=== PATIENT | female | born 1985 | race African-American/Black ===

== ENCOUNTER 2016-10-08 10:44 | Emergency (ER) | payer MEDICAID ==
--- NOTE | 2016-10-08 11:13 | ER Document Report ---
ED Medical Screen (RME) - General Stated Complaint: KNEE PAIN Notes: 30 yo female c/o pain behind her right knee x 1 1/2 weeks. feels like knee wants to give out. started hurting after going to gym. burning sensation. pt is morbidly obese TRAVEL OUTSIDE OF THE [place] IN LAST 30 DAYS: No - Related Data Allergies/Adverse Reactions: No Known Allergies Allergy (Verified 02/19/16 13:19) Past Medical History - Past Medical History Cardiac Medical History: Denies: Hx Coronary Artery Disease, Hx Heart Attack, Hx Hypertension Pulmonary Medical History: Reports: Hx Bronchitis Denies: Hx Asthma, Hx COPD, Hx Pneumonia Neurological Medical History: Denies: Hx Cerebrovascular Accident, Hx Migraine, Hx Seizures Endocrine Medical History: Denies: Hx Diabetes Mellitus Type 1, Hx Diabetes Mellitus Type 2 Musculoskeltal Medical History: Denies Hx Arthritis Past Surgical History: Reports: Hx Section - x2, Hx Oral Surgery - Immunizations Immunizations up to date: Yes Hx Diphtheria, Pertussis, Tetanus Vaccination: Yes Physical Exam - Vital signs Vitals: Temp Pulse Resp BP Pulse Ox 98.1 F 68 18 117/99 H 100 10/08/16 10:48 10/08/16 10:48 10/08/16 10:48 10/08/16 10:48 10/08/16 10:48 Course - Vital Signs Vital signs: Temp Pulse Resp BP Pulse Ox 98.1 F 68 18 117/99 H 100 10/08/16 10:48 10/08/16 10:48 10/08/16 10:48 10/08/16 10:48 10/08/16 10:48
--- NOTE | 2016-10-08 12:25 | ER Document Report ---
[id number] of Arrival: Ambulatory Information source: Patient Notes: 30-year-old female presents with complaints of right knee pain. Patient notes it feels like it's getting out intermittently. Patient notes that she recently went to the gym and has been working out using leg lifts and feels that it hurts now. Patient denies any calf swelling or pain denies any DVT or PE risk factors otherwise TRAVEL OUTSIDE OF THE [place] IN LAST 30 DAYS: No - HPI Onset: Last week Onset/Duration: Persistent Quality of pain: Achy Severity: Mild Pain Level: 1 Associated symptoms: Other Exacerbated by: Movement Relieved by: Denies Similar symptoms previously: No Recently seen / treated by doctor: No - Related Data Allergies/Adverse Reactions: No Known Allergies Allergy (Verified 10/08/16 11:12) Past Medical History - Social History Smoking Status: Never Smoker Cigarette use (# per day): No Chew tobacco use (# tins/day): No Smoking Education Provided: No Frequency of alcohol use: None Drug Abuse: None Family History: Reviewed & Not Pertinent Patient has suicidal ideation: No Patient has homicidal ideation: No - Past Medical History Cardiac Medical History: Denies: Hx Coronary Artery Disease, Hx Heart Attack, Hx Hypertension Pulmonary Medical History: Reports: Hx Bronchitis Denies: Hx Asthma, Hx COPD, Hx Pneumonia Neurological Medical History: Denies: Hx Cerebrovascular Accident, Hx Migraine, Hx Seizures Endocrine Medical History: Denies: Hx Diabetes Mellitus Type 1, Hx Diabetes Mellitus Type 2 Renal/ Medical History: Denies: Hx Peritoneal Dialysis Musculoskeltal Medical History: Denies Hx Arthritis Past Surgical History: Reports: Hx Section - x2, Hx Oral Surgery - Immunizations Immunizations up to date: Yes Hx Diphtheria, Pertussis, Tetanus Vaccination: Yes Review of Systems - Review of Systems Notes: REVIEW OF SYSTEMS: CONSTITUTIONAL : Denies fever, chills, or sweats. Denies recent illness. EENT: Denies eye, ear, throat, or mouth pain or symptoms. Denies nasal or sinus congestion or discharge. Denies throat, tongue, or mouth swelling or difficulty swallowing. CARDIOVASCULAR: Denies chest pain. Denies palpitations or racing or irregular heart beat. Denies ankle edema. RESPIRATORY: Denies cough, cold, or chest congestion. Denies shortness of breath, difficulty breathing, or wheezing. GASTROINTESTINAL: Denies abdominal pain or distention. Denies nausea, vomiting , or diarrhea. Denies blood in vomitus, stools, or per rectum. Denies black, tarry stools. Denies constipation. GENITOURINARY: Denies difficulty urinating, painful urination, burning, frequency, blood in urine, or discharge. FEMALE GENITOURINARY: Denies vaginal bleeding, heavy or abnormal periods, irregular periods. Denies vaginal discharge or odor. MUSCULOSKELETAL: Right knee pain SKIN: Denies rash, lesions or sores. HEMATOLOGIC : Denies easy bruising or bleeding. LYMPHATIC: Denies swollen, enlarged glands. NEUROLOGICAL: Denies confusion or altered mental status. Denies passing out or loss of consciousness. Denies dizziness or lightheadedness. Denies headache. Denies weakness or paralysis or loss of use of either side. Denies problems with gait or speech. Denies sensory loss, numbness, or tingling. Denies seizures. PSYCHIATRIC: Denies anxiety or stress. Denies depression, suicidal ideation, or homicidal ideation. ALL OTHER SYSTEMS REVIEWED AND NEGATIVE. Dictation was performed using [employer] voice recognition software PHYSICAL EXAMINATION: GENERAL: Well-appearing, well-nourished and in no acute distress. HEAD: Atraumatic, normocephalic. EYES: Pupils equal round and reactive to light, extraocular movements intact, conjunctiva are normal. ENT: Nares patent, oropharynx clear without exudates. Moist mucous membranes. NECK: Normal range of motion, supple without lymphadenopathy LUNGS: Breath sounds clear to auscultation bilaterally and equal. No wheezes rales or rhonchi. HEART: Regular rate and rhythm without murmurs ABDOMEN: Soft, nontender, nondistended abdomen. No guarding, no rebound. No masses appreciated. Female : deferred Musculoskeletal: Mild effusion of the right knee NEUROLOGICAL: Cranial nerves grossly intact. Normal speech, normal gait. Normal sensory, motor exams PSYCH: Normal mood, normal affect. SKIN: Warm, Dry, normal turgor, no rashes or lesions noted. Physical Exam - Vital signs Vitals: Temp Pulse Resp BP Pulse Ox 98.1 F 68 18 117/99 H 100 10/08/16 10:48 10/08/16 10:48 10/08/16 10:48 10/08/16 10:48 10/08/16 10:48 Course - Re-evaluation Re-evalutation: 10/08/16 16:26 Physical examination notes no signs of DVT, patient is in no significant distress. Patient is able to ambulate with no difficulty. I will discharge home with Shekhar wrap and follow-up with orthopedics for reevaluation as well as anti-inflammatories and pain control After performing a Medical Screening Examination, I estimate there is LOW risk for ACUTE CORONARY SYNDROME, RESPIRATORY FAILURE, SEPSIS OR MENINGITIS, thus I consider the discharge disposition reasonable. The patient and I have discussed the diagnosis and risks, and we agree with discharging home with close follow- up. We also discussed returning to the Emergency Department immediately if new or worsening symptoms occur. We have discussed the symptoms which are most concerning (e.g., changing or worsening pain, trouble swallowing or breathing, neck stiffness, fever) that necessitate immediate return. - Vital Signs Vital signs: Temp Pulse Resp BP Pulse Ox 98.3 F 53 L 20 110/68 100 10/08/16 12:49 10/08/16 12:49 10/08/16 12:49 10/08/16 12:49 10/08/16 12:49 Discharge - Discharge Clinical Impression: Right knee pain Qualifiers: Chronicity: acute Qualified Code(s): M25.561 - Pain in right knee Condition: Stable Disposition: HOME, SELF-CARE Instructions: Suspected Internal Knee Injury ([facility]), Sprained Knee ([facility]) Prescriptions: Hydrocodone/Acetaminophen [Tryon 5-325 mg Tablet] 1 tab PO Q6 #20 tablet Referrals: VARINDER BLANTON MD [ACTIVE STAFF] - Follow up tomorrow
[2016-10-08 12:54] VITALS: BP 110/68
== END 2016-10-08 12:56 | disposition home or self-care (01) ==
LOC: ER 10:44
DX: M25.561 Pain in right knee (principal)
CPT/HCPCS: 99283

== ENCOUNTER 2016-10-15 17:12 | Emergency (ER) | payer MEDICAID ==
--- NOTE | 2016-10-15 18:44 | ER Document Report ---
ED Medical Screen (RME) - General Stated Complaint: FACIAL SWELLING Notes: 30 yo female c/o left eye redness, tearing and drainage x 1 day. + exposure to pink eye TRAVEL OUTSIDE OF THE [place] IN LAST 30 DAYS: No - Related Data Allergies/Adverse Reactions: No Known Allergies Allergy (Verified 10/08/16 11:12) Past Medical History - Past Medical History Cardiac Medical History: Denies: Hx Coronary Artery Disease, Hx Heart Attack, Hx Hypertension Pulmonary Medical History: Reports: Hx Bronchitis Denies: Hx Asthma, Hx COPD, Hx Pneumonia Neurological Medical History: Denies: Hx Cerebrovascular Accident, Hx Migraine, Hx Seizures Endocrine Medical History: Denies: Hx Diabetes Mellitus Type 1, Hx Diabetes Mellitus Type 2 Renal/ Medical History: Denies: Hx Peritoneal Dialysis Musculoskeltal Medical History: Denies Hx Arthritis Past Surgical History: Reports: Hx Section - x2, Hx Oral Surgery - Immunizations Immunizations up to date: Yes Hx Diphtheria, Pertussis, Tetanus Vaccination: Yes Physical Exam - Vital signs Vitals: Temp Pulse Resp BP Pulse Ox 97.9 F 88 18 141/89 H 97 10/15/16 17:36 10/15/16 17:36 10/15/16 17:36 10/15/16 17:36 10/15/16 17:36 Course - Vital Signs Vital signs: Temp Pulse Resp BP Pulse Ox 97.9 F 88 18 141/89 H 97 10/15/16 17:36 10/15/16 17:36 10/15/16 17:36 10/15/16 17:36 10/15/16 17:36
--- NOTE | 2016-10-15 20:30 | ER Document Report ---
ED General - General Chief Complaint: Redness of Eye Stated Complaint: FACIAL SWELLING Notes: Patient is a 30-year-old female without significant past medical history presents with left eye irritation. Describes the discomfort as a mild, burning pain. Nothing worsens the symptoms and she notes that they have spontaneously improved since onset. States it started after she was outside doing yardwork with a friend. No history of similar symptoms in the past. Denies any foreign body to the eye or feeling that she has something in her eye. He does not use contacts. TRAVEL OUTSIDE OF THE [place] IN LAST 30 DAYS: No - Related Data Allergies/Adverse Reactions: No Known Allergies Allergy (Verified 10/15/16 18:42) Past Medical History - General Information source: Patient - Social History Smoking Status: Never Smoker Chew tobacco use (# tins/day): No Frequency of alcohol use: None Drug Abuse: None Lives with: Family Family History: Reviewed & Not Pertinent Patient has suicidal ideation: No Patient has homicidal ideation: No - Past Medical History Cardiac Medical History: Denies: Hx Coronary Artery Disease, Hx Heart Attack, Hx Hypertension Pulmonary Medical History: Reports: Hx Bronchitis Denies: Hx Asthma, Hx COPD, Hx Pneumonia Neurological Medical History: Denies: Hx Cerebrovascular Accident, Hx Migraine, Hx Seizures Endocrine Medical History: Denies: Hx Diabetes Mellitus Type 1, Hx Diabetes Mellitus Type 2 Renal/ Medical History: Denies: Hx Peritoneal Dialysis Musculoskeltal Medical History: Denies Hx Arthritis Past Surgical History: Reports: Hx Section - x2, Hx Oral Surgery - Immunizations Immunizations up to date: Yes Hx Diphtheria, Pertussis, Tetanus Vaccination: Yes Review of Systems - Review of Systems Notes: Constitutional: Negative for fever. HENT: Negative for sore throat. Eyes: Positive for visual changes. Cardiovascular: Negative for chest pain. Respiratory: Negative for shortness of breath. Gastrointestinal: Negative for abdominal pain, vomiting or diarrhea. Genitourinary: Negative for dysuria. Musculoskeletal: Negative for back pain. Skin: Negative for rash. Neurological: Negative for headaches, weakness or numbness. 10 point ROS negative except as marked above and in HPI. Physical Exam - Vital signs Vitals: Temp Pulse Resp BP Pulse Ox 97.9 F 88 18 141/89 H 97 10/15/16 17:36 10/15/16 17:36 10/15/16 17:36 10/15/16 17:36 10/15/16 17:36 Interpretation: Normal Notes: PHYSICAL EXAMINATION: GENERAL: Well-appearing, well-nourished and in no acute distress. HEAD: Atraumatic, normocephalic. EYES: Mild conjunctival injection on the left. No foreign body. A tracker motions intact. Pupils 3 mm equal reactive. ENT: Moist mucous membranes. NECK: Normal range of motion LUNGS: Normal work of breathing HEART: 2+ radial pulses bilaterally EXTREMITIES: no pitting or edema. No cyanosis. NEUROLOGICAL: No focal neurological deficits. Moves all extremities spontaneously and on command. PSYCH: Normal mood, normal affect. SKIN: Warm, Dry, normal turgor, no rashes or lesions noted. Course - Re-evaluation Re-evalutation: 10/15/16 20:28 Patient presents with left conjunctival injection after helping to the plant soil. States that the eye became mildly your tinge began rubbing it and the overall appearance is consistent with a local contact irritation. No foreign body. Extract motions intact. Pupils equal and reactive. She denies any symptoms to suggest an acute corneal abrasion she specifically denies any pain. I have instructed her to purchase [id number] antihistamine eyedrops. I do not suspect a periorbital or orbital cellulitis based on exam and history.At this time will discharge with return precautions and follow-up recommendations. Verbal discharge instructions given a the bedside and opportunity for questions given. Medication warnings reviewed. Patient is in agreement with this plan and has verbalized understanding of return precautions and the need for primary care follow-up in the next 24-72 hours. - Vital Signs Vital signs: Temp Pulse Resp BP Pulse Ox 98.6 F 81 18 136/92 H 97 10/15/16 20:51 10/15/16 20:51 10/15/16 20:51 10/15/16 20:51 10/15/16 20:51 Discharge - Discharge Clinical Impression: Conjunctivitis, left eye Qualifiers: Conjunctivitis type: acute Acute conjunctivitis type: atopic Qualified Code(s) : H10.12 - Acute atopic conjunctivitis, left eye Condition: Good Disposition: HOME, SELF-CARE Instructions: Eyedrop Use ([facility]), Conjunctivitis, Allergic Forms: Return to Work Referrals: STEFANIE CALDWELL MD [Primary Care Provider] - Follow up as needed
[2016-10-16 01:15] VITALS: BP 136/92
== END 2016-10-15 21:10 | disposition home or self-care (01) ==
LOC: ER 17:12
DX: H10.12 Acute atopic conjunctivitis, left eye (principal); R22.0 Localized swelling, mass and lump, head
CPT/HCPCS: 99283

== ENCOUNTER 2016-12-26 18:28 | Emergency (ER) | payer OTHER, MEDICAID ==
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
[2016-12-26 20:43] LABS: ABSOLUTE BASOPHILS # (AUTO) 0.1 10^3/uL (0.0-0.2); ABSOLUTE EOSINOPHILS # (AUTO) 0.2 10^3/uL (0.0-0.6); ABSOLUTE LYMPHOCYTES (AUTO) 3.9 10^3/uL (0.5-4.7); ABSOLUTE MONOCYTES (AUTO) 0.5 10^3/uL (0.1-1.4); ABSOLUTE NEUT (AUTO) 9.2 10^3/uL (1.7-8.2); BASOPHILS % (AUTO) 0.7 % (0-2); EOSINOPHILS % (AUTO) 1.4 % (0-6); HEMATOCRIT 41.9 % (36.0-47.0); HGB HCT DIFFERENCE 0.1; LYMPHOCYTES % (AUTO) 28.3 % (13-45); MEAN CORPUSCULAR HEMOGLOBIN 29.5 pg (27.0-33.4); MEAN CORPUSCULAR HGB CONC 33.5 g/dL (32.0-36.0); MEAN CORPUSCULAR VOLUME 88 fl (80-97); MONOCYTES % (AUTO) 3.5 % (3-13); RED BLOOD COUNT 4.76 10^6/uL (3.72-5.28); RED CELL DISTRIBUTION WIDTH 13.4 % (11.5-14.0); SEGMENTED NEUTROPHILS % (AUTO) 66.1 % (42-78); WHITE BLOOD COUNT 13.9 10^3/uL (4.0-10.5)
[2016-12-26 21:05] LABS: ALANINE AMINOTRANSFERASE 19 U/L (9-52); ALBUMIN 3.6 g/dL (3.5-5.0); ALKALINE PHOSPHATASE 94 U/L (38-126); ANION GAP 9 (5-19); ASPARTATE AMINO TRANSFERASE 15 U/L (14-36); BILIRUBIN,DIRECT 0.3 mg/dL (0.0-0.4); BILIRUBIN,TOTAL 0.4 mg/dL (0.2-1.3); BLOOD UREA NITROGEN 12 mg/dL (7-20); CALCIUM 9.2 mg/dL (8.4-10.2); CARBON DIOXIDE 28 mmol/L (22-30); CHLORIDE 103 mmol/L (98-107); CREATININE RESULT 0.74 mg/dL (0.52-1.25); GLUCOSE 132 mg/dL (75-110); POTASSIUM 4.6 mmol/L (3.6-5.0); SODIUM 139.8 mmol/L (137-145); TOTAL PROTEIN 6.7 g/dL (6.3-8.2)
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
[2016-12-27 00:23] VITALS: BP 122/64
== END 2016-12-26 22:25 | disposition home or self-care (01) ==
LOC: ER 18:28
DX: S39.012A Strain of muscle, fascia and tendon of lower back, initial encounter (principal); S16.1XXA Strain of muscle, fascia and tendon at neck level, initial encounter; E66.01 Morbid (severe) obesity due to excess calories; V79.40XA Driver of bus injured in collision with unspecified motor vehicles in traffic accident, initial encounter; Y92.410 Unspecified street and highway as the place of occurrence of the external cause; Y99.0 Civilian activity done for income or pay
CPT/HCPCS: 36415; 72125; 74177; 80053; 84703; 85025; 99284

== ENCOUNTER 2016-12-29 18:20 | Emergency (ER) | payer OTHER, MEDICAID ==
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
[2016-12-29 20:10] VITALS: BP 138/98
== END 2016-12-29 20:05 | disposition home or self-care (01) ==
LOC: ER 18:20
DX: M62.830 Muscle spasm of back (principal); V49.9XXA Car occupant (driver) (passenger) injured in unspecified traffic accident, initial encounter
CPT/HCPCS: 99282

== ENCOUNTER 2017-01-17 21:37 | Emergency (ER) | payer MEDICAID, OTHER ==
--- NOTE | 2017-01-17 23:40 | ER Document Report ---
ED GI/ - General Chief Complaint: Diarrhea Stated Complaint: DIARRHEA,ABDOMINAL PAIN Time Seen by Provider: 01/17/17 23:30 Notes: Patient is a 31-year-old female who comes emergency department for chief complaint of lower abdominal pain and diarrhea for the past 6 days, she states initially she had greenish-looking stools, she states these have started to become mucousy in appearance. Patient states she had 7 episodes today before coming to the emergency department. She denies fever, she denies nausea or vomiting, she denies flank pain, she denies blood in the stool. She denies recent antibiotics, suspicious foods, she denies that family members also have the same symptom. She tried Imodium at home without success. Patient denies history of the same. Past medical history of , denies any other medical history. TRAVEL OUTSIDE OF THE [place] IN LAST 30 DAYS: No - Related Data Allergies/Adverse Reactions: No Known Allergies Allergy (Verified 12/29/16 18:22) Past Medical History - General Information source: Patient - Social History Smoking Status: Never Smoker Drug Abuse: None Lives with: Family Family History: Reviewed & Not Pertinent - Past Medical History Cardiac Medical History: Denies: Hx Coronary Artery Disease, Hx Heart Attack, Hx Hypertension Pulmonary Medical History: Reports: Hx Bronchitis Denies: Hx Asthma, Hx COPD, Hx Pneumonia Neurological Medical History: Denies: Hx Cerebrovascular Accident, Hx Migraine, Hx Seizures Endocrine Medical History: Denies: Hx Diabetes Mellitus Type 1, Hx Diabetes Mellitus Type 2 Renal/ Medical History: Denies: Hx Peritoneal Dialysis Musculoskeltal Medical History: Denies Hx Arthritis Past Surgical History: Reports: Hx Section - x2, Hx Oral Surgery - Immunizations Immunizations up to date: Yes Hx Diphtheria, Pertussis, Tetanus Vaccination: Yes Review of Systems - Review of Systems Constitutional: No symptoms reported EENT: No symptoms reported Cardiovascular: No symptoms reported Respiratory: No symptoms reported Gastrointestinal: See HPI Genitourinary: No symptoms reported Female Genitourinary: No symptoms reported Musculoskeletal: No symptoms reported Skin: No symptoms reported Hematologic/Lymphatic: No symptoms reported Neurological/Psychological: No symptoms reported Physical Exam - Vital signs Vitals: Temp Pulse Resp BP Pulse Ox 98.4 F 95 16 115/52 L 100 01/17/17 21:46 01/17/17 21:46 01/17/17 21:46 01/17/17 21:46 01/17/17 21:46 Interpretation: Normal - General General appearance: Appears well, Alert - HEENT Head: Normocephalic, Atraumatic Eyes: Normal Extraocular movements intact: Yes Eyelashes: Normal Pupils: PERRL Mouth/Lips: Normal Mucous membranes: Normal Pharynx: Normal Neck: Normal - Respiratory Respiratory status: No respiratory distress Chest status: Nontender Breath sounds: Normal Chest palpation: Normal - Cardiovascular Rhythm: Regular. No: Tachycardia Heart sounds: Normal auscultation, S1 appreciated, S2 appreciated Murmur: No - Abdominal Inspection: Normal Distension: No distension Bowel sounds: Normal Tenderness: Tender - There is mild tenderness of the lower abdomen bilaterally, no rebound tenderness, no guarding, remaining abdomen is benign Organomegaly: No organomegaly - Back Back: Normal, Nontender. No: Tender, Vertebra tenderness - Extremities General upper extremity: Normal inspection, Nontender, Normal color, Normal ROM , Normal temperature General lower extremity: Normal inspection, Nontender, Normal color, Normal ROM , Normal temperature, Normal weight bearing. No: Fiorella's sign - Neurological Neuro grossly intact: Yes Cognition: Normal Orientation: AAOx4 Newton Coma Scale Eye Opening: Spontaneous Newton Coma Scale Verbal: Oriented Newton Coma Scale Motor: Obeys Commands Eduard Coma Scale Total: 15 Speech: Normal Motor strength normal: LUE, RUE, LLE, RLE Sensory: Normal - Psychological Associated symptoms: Normal affect, Normal mood - Skin Skin Temperature: Warm Skin Moisture: Dry Skin Color: Normal Course - Re-evaluation Re-evalutation: Patient with generalized lower abdominal tenderness, no guarding, no rebound tenderness,Upper abdomen is unremarkable, normal lower back examination. No fever, no tachycardia. CBC shows leukocytosis at 16 with no bandemia. Chemistry and urinalysis generally unremarkable. Patient attempted to give a stool sample but was unable to during her stay. Patient asking to leave, patient provided with a stool sample washer and prescription to have this test, because of patient's weeklong worsening diarrhea, lower abdominal tenderness, and leukocytosis patient will be placed on Cipro/Flagyl antibiotic coverage and have the test performed, and follow-up with primary care, and return to emergency department if she worsens (discussed return precautios). Patient states understanding and agreement. - Vital Signs Vital signs: Temp Pulse Resp BP Pulse Ox 98.2 F 75 20 126/69 H 97 01/18/17 03:00 01/18/17 03:00 01/18/17 03:00 01/18/17 03:00 01/18/17 03:00 - Laboratory Result Diagrams: 01/18/17 00:25 01/18/17 00:25 Laboratory results interpreted by me: 01/18/17 01/18/17 00:25 00:25 WBC 16.2 H Absolute Neutrophils 10.9 H Absolute Eosinophils 0.7 H Ur Leukocyte Esterase TRACE H Discharge - Discharge Clinical Impression: Lower abdominal pain Condition: Stable Disposition: HOME, SELF-CARE Additional Instructions: If desired provide a stool sample with the prescription given to evaluate your symptoms further. Because of your workup, symptoms, and duration (1 week) I recommend treatment with the antibiotics as prescribed. Follow-up with primary care for additional management. Return to emergency department for any concerning or worsening symptoms including severe abdominal pain, fever, abdominal swelling, bloody bowel movements, or any other concerning or worsening symptoms. Prescriptions: Ciprofloxacin HCl [Cipro 500 mg Tablet] 500 mg PO BID #14 tablet Metronidazole [Flagyl 500 mg Tablet] 500 mg PO TID #21 tablet Forms: Follow-Up Laboratory Testing
[2017-01-18 00:39] LABS: ABSOLUTE BASOPHILS # (AUTO) 0.1 10^3/uL (0.0-0.2); ABSOLUTE EOSINOPHILS # (AUTO) 0.7 10^3/uL (0.0-0.6); ABSOLUTE LYMPHOCYTES (AUTO) 3.9 10^3/uL (0.5-4.7); ABSOLUTE MONOCYTES (AUTO) 0.7 10^3/uL (0.1-1.4); ABSOLUTE NEUT (AUTO) 10.9 10^3/uL (1.7-8.2); BASOPHILS % (AUTO) 0.4 % (0-2); EOSINOPHILS % (AUTO) 4.2 % (0-6); HEMATOCRIT 44.9 % (36.0-47.0); HGB HCT DIFFERENCE 0.1; LYMPHOCYTES % (AUTO) 23.9 % (13-45); MEAN CORPUSCULAR HEMOGLOBIN 29.1 pg (27.0-33.4); MEAN CORPUSCULAR HGB CONC 33.4 g/dL (32.0-36.0); MEAN CORPUSCULAR VOLUME 87 fl (80-97); MONOCYTES % (AUTO) 4.1 % (3-13); RED BLOOD COUNT 5.15 10^6/uL (3.72-5.28); RED CELL DISTRIBUTION WIDTH 13.4 % (11.5-14.0); SEGMENTED NEUTROPHILS % (AUTO) 67.4 % (42-78); WHITE BLOOD COUNT 16.2 10^3/uL (4.0-10.5)
[2017-01-18 00:52] LABS: APPEARANCE,URINE CLOUDY; BILIRUBIN,URINE NEGATIVE (NEGATIVE); GLUCOSE, URINE NEGATIVE (NEGATIVE); KETONES,URINE NEGATIVE (NEGATIVE); LEUKOCYTE ESTERASE,URINE TRACE (NEGATIVE); NITRITE,URINE NEGATIVE (NEGATIVE); PROTEIN,URINE NEGATIVE (NEGATIVE); URINE SPECIFIC GRAVITY 1.018; UROBILINOGEN,URINE NEGATIVE mg/dL (<2.0)
[2017-01-18 01:00] LABS: ANION GAP 11 (5-19); BLOOD UREA NITROGEN 10 mg/dL (7-20); CALCIUM 9.6 mg/dL (8.4-10.2); CARBON DIOXIDE 27 mmol/L (22-30); CHLORIDE 103 mmol/L (98-107); CREATININE RESULT 0.86 mg/dL (0.52-1.25); GLUCOSE 110 mg/dL (75-110); POTASSIUM 4.8 mmol/L (3.6-5.0); SODIUM 140.7 mmol/L (137-145)
[2017-01-18] MEDS ORDERED: CIPROFLOXACIN HCL 500 MG TABLET PO ONE (02:47)
[2017-01-18] MEDS ORDERED: METRONIDAZOLE 500 MG TABLET PO ONE (02:47)
[2017-01-18] MEDS ORDERED: HYDROCODONE/ACETAMINOPHEN 5-325 MG 6 TAB/DSPK PO PRN ×2 (02:47→03:16)
[2017-01-18 03:07] VITALS: BP 126/69
== END 2017-01-18 03:03 | disposition home or self-care (01) ==
LOC: ER 21:37
DX: R10.30 Lower abdominal pain, unspecified (principal); R19.7 Diarrhea, unspecified
CPT/HCPCS: 99284; 36415; 85025; 81025; 80048; 81001; J3490 ×2

== ENCOUNTER 2017-05-27 10:02 | Emergency (ER) | payer MEDICAID ==
[2017-05-27] MEDS ORDERED: ONDANSETRON 4 MG TAB.RAPDIS SL ONE (10:24)
--- NOTE | 2017-05-27 10:26 | ER Document Report ---
ED Medical Screen (RME) - General Chief Complaint: Nausea/Vomiting/Diarrhea Stated Complaint: VOMITING/DIARRHEA Time Seen by Provider: 05/27/17 10:07 Mode of Arrival: Ambulatory Information source: Patient TRAVEL OUTSIDE OF THE [place] IN LAST 30 DAYS: No - HPI Patient complains to provider of: Nausea, vomiting, diarrhea Notes: 05/27/17 10:25 Patient is a 31-year-old female presenting to the emergency room today complaining of nausea vomiting and diarrhea that started yesterday, she has some occasional crampy epigastric abdominal pain, usually when she is either going to vomit or have a bowel movement, her 10-year-old daughter started with similar symptoms just prior to patient developing them, denies any fevers, no urinary symptoms, history of 2 - Related Data Allergies/Adverse Reactions: No Known Allergies Allergy (Verified 05/27/17 10:06) Past Medical History - Past Medical History Cardiac Medical History: Denies: Hx Coronary Artery Disease, Hx Heart Attack, Hx Hypertension Pulmonary Medical History: Reports: Hx Bronchitis Denies: Hx Asthma, Hx COPD, Hx Pneumonia Neurological Medical History: Denies: Hx Cerebrovascular Accident, Hx Migraine, Hx Seizures Endocrine Medical History: Denies: Hx Diabetes Mellitus Type 1, Hx Diabetes Mellitus Type 2 Renal/ Medical History: Denies: Hx Peritoneal Dialysis Musculoskeltal Medical History: Denies Hx Arthritis Past Surgical History: Reports: Hx Section - x2, Hx Oral Surgery - Immunizations Immunizations up to date: Yes Hx Diphtheria, Pertussis, Tetanus Vaccination: Yes Physical Exam - Vital signs Vitals: Temp Pulse Resp BP Pulse Ox 97.9 F 74 20 130/94 H 99 05/27/17 10:07 05/27/17 10:07 05/27/17 10:07 05/27/17 10:07 05/27/17 10:07 Course - Vital Signs Vital signs: Temp Pulse Resp BP Pulse Ox 97.9 F 74 20 130/94 H 99 05/27/17 10:07 05/27/17 10:07 05/27/17 10:07 05/27/17 10:07 05/27/17 10:07
[2017-05-27 11:01] LABS: ABSOLUTE EOSINOPHILS # (AUTO) 0.3 10^3/uL (0.0-0.6); ABSOLUTE LYMPHOCYTES (AUTO) 2.7 10^3/uL (0.5-4.7); ABSOLUTE MONOCYTES (AUTO) 0.4 10^3/uL (0.1-1.4); BASOPHILS % (AUTO) 0.5 % (0-2); HEMATOCRIT 44.4 % (36.0-47.0); HEMOGLOBIN 15.5 g/dL (12.0-15.5); HGB HCT DIFFERENCE 2.1; LYMPHOCYTES % (AUTO) 28.7 % (13-45); MEAN CORPUSCULAR HEMOGLOBIN 30.1 pg (27.0-33.4); MEAN CORPUSCULAR VOLUME 86 fl (80-97); MONOCYTES % (AUTO) 3.9 % (3-13); RED BLOOD COUNT 5.16 10^6/uL (3.72-5.28); RED CELL DISTRIBUTION WIDTH 13.6 % (11.5-14.0); SEGMENTED NEUTROPHILS % (AUTO) 63.9 % (42-78); WHITE BLOOD COUNT 9.3 10^3/uL (4.0-10.5)
[2017-05-27 11:03] LABS: APPEARANCE,URINE CLEAR; BILIRUBIN,URINE NEGATIVE (NEGATIVE); GLUCOSE, URINE NEGATIVE (NEGATIVE); KETONES,URINE NEGATIVE (NEGATIVE); LEUKOCYTE ESTERASE,URINE NEGATIVE (NEGATIVE); NITRITE,URINE NEGATIVE (NEGATIVE); PROTEIN,URINE NEGATIVE (NEGATIVE); URINE SPECIFIC GRAVITY 1.019; UROBILINOGEN,URINE NEGATIVE mg/dL (<2.0)
[2017-05-27 11:24] LABS: ALANINE AMINOTRANSFERASE 26 U/L (9-52); ALBUMIN 3.9 g/dL (3.5-5.0); ALKALINE PHOSPHATASE 79 U/L (38-126); ANION GAP 7 (5-19); ASPARTATE AMINO TRANSFERASE 14 U/L (14-36); BILIRUBIN,DIRECT 0.4 mg/dL (0.0-0.4); BILIRUBIN,TOTAL 0.7 mg/dL (0.2-1.3); BLOOD UREA NITROGEN 10 mg/dL (7-20); CALCIUM 9.5 mg/dL (8.4-10.2); CARBON DIOXIDE 27 mmol/L (22-30); CHLORIDE 107 mmol/L (98-107); CREATININE RESULT 0.77 mg/dL (0.52-1.25); GLUCOSE 112 mg/dL (75-110); LIPASE 37.4 U/L (23-300); POTASSIUM 4.1 mmol/L (3.6-5.0); SODIUM 140.6 mmol/L (137-145)
--- NOTE | 2017-05-27 12:10 | RADIOLOGY REPORT (SQ) ---
EXAM DESCRIPTION: CHEST PA/LAT COMPLETED DATE/TIME: 05/27/2017 11:55 am REASON FOR STUDY: cough COMPARISON: 08/05/2015 EXAM PARAMETERS: NUMBER OF VIEWS: two views TECHNIQUE: Digital Frontal and Lateral radiographic views of the chest acquired. RADIATION DOSE: NA LIMITATIONS: none FINDINGS: LUNGS AND PLEURA: No opacities, masses or pneumothorax. No pleural effusion. MEDIASTINUM AND HILAR STRUCTURES: No masses or contour abnormalities. HEART AND VASCULAR STRUCTURES: Heart normal size. No evidence for failure. BONES: No acute findings. HARDWARE: None in the chest. OTHER: No other significant finding. IMPRESSION: NO SIGNIFICANT RADIOGRAPHIC FINDING IN THE CHEST. TECHNICAL DOCUMENTATION: JOB ID: [id number] [employer]- All Rights Reserved
[2017-05-27] MEDS ORDERED: PROMETHAZINE HCL 25 MG TABLET PO ONE (12:20)
--- NOTE | 2017-05-27 12:20 | ER Document Report ---
ED General - General Chief Complaint: Nausea/Vomiting/Diarrhea Stated Complaint: VOMITING/DIARRHEA Time Seen by Provider: 05/27/17 10:07 Mode of Arrival: Ambulatory TRAVEL OUTSIDE OF THE [place] IN LAST 30 DAYS: No - HPI Patient complains to provider of: Nausea vomiting diarrhea Notes: Patient coming in for evaluation nausea vomiting diarrhea. Patient states symptoms ongoing for less than [address] multiple family members with similar symptoms. By my evaluation patient is resting comfortably no signs of any obvious distress. Patient denies fevers denies any recent antibiotics. Patient denies any abdominal pain. Patient denies taking any medications for her symptoms prior to arrival - Related Data Allergies/Adverse Reactions: No Known Allergies Allergy (Verified 05/27/17 10:06) Past Medical History - General Information source: Patient - Social History Smoking Status: Never Smoker Chew tobacco use (# tins/day): No Frequency of alcohol use: None Drug Abuse: None Family History: Reviewed & Not Pertinent - Past Medical History Cardiac Medical History: Denies: Hx Coronary Artery Disease, Hx Heart Attack, Hx Hypertension Pulmonary Medical History: Reports: Hx Bronchitis Denies: Hx Asthma, Hx COPD, Hx Pneumonia Neurological Medical History: Denies: Hx Cerebrovascular Accident, Hx Migraine, Hx Seizures Endocrine Medical History: Denies: Hx Diabetes Mellitus Type 1, Hx Diabetes Mellitus Type 2 Renal/ Medical History: Denies: Hx Peritoneal Dialysis Musculoskeltal Medical History: Denies Hx Arthritis Past Surgical History: Reports: Hx Section - x2, Hx Oral Surgery - Immunizations Immunizations up to date: Yes Hx Diphtheria, Pertussis, Tetanus Vaccination: Yes Review of Systems - Review of Systems Constitutional: No symptoms reported EENT: No symptoms reported Cardiovascular: No symptoms reported Respiratory: No symptoms reported Gastrointestinal: Abdominal pain, Diarrhea, Nausea, Vomiting Genitourinary: No symptoms reported Female Genitourinary: No symptoms reported Musculoskeletal: No symptoms reported Skin: No symptoms reported Hematologic/Lymphatic: No symptoms reported Neurological/Psychological: No symptoms reported -: Yes All other systems reviewed and negative Physical Exam - Vital signs Vitals: Temp Pulse Resp BP Pulse Ox 97.9 F 74 20 130/94 H 99 05/27/17 10:07 05/27/17 10:07 05/27/17 10:07 05/27/17 10:07 05/27/17 10:07 Interpretation: Normal - General General appearance: Appears well, Alert - HEENT Head: Normocephalic, Atraumatic Eyes: Normal Pupils: PERRL - Respiratory Respiratory status: No respiratory distress Chest status: Nontender Breath sounds: Normal Chest palpation: Normal - Cardiovascular Rhythm: Regular Heart sounds: Normal auscultation Murmur: No - Abdominal Inspection: Normal, Morbidly Obese Distension: No distension Bowel sounds: Normal Tenderness: Nontender Organomegaly: No organomegaly - Back Back: Normal, Nontender - Extremities General upper extremity: Normal inspection, Nontender, Normal color, Normal ROM , Normal temperature General lower extremity: Normal inspection, Nontender, Normal color, Normal ROM , Normal temperature, Normal weight bearing. No: Fiorella's sign - Neurological Neuro grossly intact: Yes Cognition: Normal Orientation: AAOx4 [place] Coma Scale Eye Opening: Spontaneous [place] Coma Scale Verbal: Oriented Eduard Coma Scale Motor: Obeys Commands Eduard Coma Scale Total: 15 Speech: Normal Motor strength normal: LUE, RUE, LLE, RLE Sensory: Normal - Psychological Associated symptoms: Normal affect, Normal mood - Skin Skin Temperature: Warm Skin Moisture: Dry Skin Color: Normal Course - Re-evaluation Re-evalutation: 05/27/17 14:52 The patient presents with nausea vomiting diarrhea without signs of peritonitis or other life-threatening or serious etiology. The patient appears stable for discharge and has been instructed to return immediately if the symptoms worsen in any way, or in 8-12hr if not improved for re-evaluation. The patient has been instructed to return if the symptoms worsen or change in any way. - Vital Signs Vital signs: Temp Pulse Resp BP Pulse Ox 97.9 F 74 20 130/94 H 99 05/27/17 10:07 05/27/17 10:07 05/27/17 10:07 05/27/17 10:07 05/27/17 10:07 - Laboratory Result Diagrams: 05/27/17 10:30 05/27/17 10:30 Laboratory results interpreted by me: 05/27/17 05/27/17 10:30 10:30 Glucose 112 H Urine Blood SMALL H Discharge - Discharge Clinical Impression: Nausea vomiting and diarrhea, Cough Condition: Good Disposition: HOME, SELF-CARE Instructions: Gastroenteritis (adult) ([facility]) Additional Instructions: Your seen today for nausea vomiting diarrhea. More likely your symptoms are viral in nature. Please follow-up with your primary care physician. Please return to the ER symptoms worsen. Take nausea medication as prescribed. Your chest x-ray today was negative I do not have a clear etiology for your cough multiple things can cause cough such as smoke exposure weather changes acid reflux. Highly recommend following up with your primary care physician for further evaluation of your cough. Prescriptions: Ondansetron [Zofran Odt 4 mg Tablet] 1 - 2 tab PO Q4H PRN #30 tab.rapdis PRN Reason: For Nausea/Vomiting Promethazine HCl [Phenergan 25 mg Tablet] 1 - 2 tab PO Q6H PRN #30 tablet PRN Reason: Forms: Return to Work Referrals: TAYLOR CAMPBELL DO [Primary Care Provider] - Follow up in 3-5 days
[2017-05-27 13:04] VITALS: BP 134/88
== END 2017-05-27 13:06 | disposition home or self-care (01) ==
LOC: ER 10:02
DX: R11.2 Nausea with vomiting, unspecified (principal); R19.7 Diarrhea, unspecified; R05 Cough; R10.9 Unspecified abdominal pain
CPT/HCPCS: 99284; 36415; 87086; 83690; 84703; 85025; 80053; 81001; 71020; S0119; J3490

== ENCOUNTER 2018-07-30 22:26 | Emergency (ER) | payer SELFPAY ==
[2018-07-30 22:46] VITALS: BP 149/96
--- NOTE | 2018-07-30 23:52 | ER Document Report ---
ED Hand/Wrist Injury - General Chief Complaint: Hand Pain Stated Complaint: PAIN AND NUMBNESS FINGERS ARMS AND CHEST Time Seen by Provider: 07/30/18 23:26 Mode of Arrival: Ambulatory Information source: Patient Notes: Patient is a 32-year-old female comes emergency room complaining of left wrist and hand pain. Patient states that started approximately 4 days ago and seems to be getting worse. States that the only time she can make it feel better is if she hangs it lower than her body and she shakes it to knock the numbness away. She denies any known injury states that the pain does radiate up to the elbow area as well. Because of the elbow hurting sometimes her shoulder hurts. 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 Patient denies any other medical problems and is currently on no medications. Patient uses the Mirena for control and does not remember her last menstrual period. Patient states that most of the pain is in her first 3 fingers or thumb index and middle finger. TRAVEL OUTSIDE OF THE [place] IN LAST 30 DAYS: No - HPI Onset: Other - 4 days Where: Other - Unknown Timing: Constant, Still present Quality of pain: Achy, Throbbing, Other - Tingling and numbness Severity: Moderate Pain Level: 3 - Related Data Allergies/Adverse Reactions: No Known Allergies Allergy (Verified 05/27/17 10:06) Past Medical History - General Information source: Patient - Social History Smoking Status: Never Smoker Cigarette use (# per day): No Chew tobacco use (# tins/day): No Smoking Education Provided: No Family History: Reviewed & Not Pertinent - Past Medical History Cardiac Medical History: Denies: Hx Coronary Artery Disease, Hx Heart Attack, Hx Hypertension Pulmonary Medical History: Reports: Hx Bronchitis Denies: Hx Asthma, Hx COPD, Hx Pneumonia Neurological Medical History: Denies: Hx Cerebrovascular Accident, Hx Migraine, Hx Seizures Endocrine Medical History: Denies: Hx Diabetes Mellitus Type 1, Hx Diabetes Mellitus Type 2 Renal/ Medical History: Denies: Hx Peritoneal Dialysis Musculoskeletal Medical History: Denies Hx Arthritis Past Surgical History: Reports: Hx Section - x2, Hx Oral Surgery - Immunizations Immunizations up to date: Yes Hx Diphtheria, Pertussis, Tetanus Vaccination: Yes Review of Systems - Review of Systems Constitutional: No symptoms reported EENT: No symptoms reported Cardiovascular: No symptoms reported Respiratory: No symptoms reported Gastrointestinal: No symptoms reported Genitourinary: No symptoms reported Female Genitourinary: No symptoms reported Musculoskeletal: No symptoms reported, See HPI, Joint pain Skin: No symptoms reported Hematologic/Lymphatic: No symptoms reported Neurological/Psychological: No symptoms reported -: Yes All other systems reviewed and negative Physical Exam - Vital signs Vitals: Temp Pulse Resp BP Pulse Ox 98.4 F 81 18 149/96 H 98 07/30/18 22:40 07/30/18 22:40 07/30/18 22:40 07/30/18 22:40 07/30/18 22:40 Interpretation: Hypertensive - Notes Notes: PHYSICAL EXAMINATION: GENERAL: Patient is a well-nourished well-developed morbidly obese 32-year-old female who is in no apparent distress on physical exam tonight. Patient was laying flat on the gurney with her arm left arm extended to the floor shaking it as I walked in the room. HEAD: Atraumatic, normocephalic. NECK: Normal range of motion, supple without lymphadenopathy LUNGS: Breath sounds clear to auscultation bilaterally and equal. No wheezes rales or rhonchi. HEART: Regular rate and rhythm without murmurs Female : deferred Musculoskeletal: Examination of patient's area of concern is her left wrist and arm area. Examination shows no visible signs of deformity. No history of trauma to palpation. 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 She has good cap refill in the nailbeds of the fingers of the left hand. She has good opposition Of the left hand.Poitive Tinel's positive Phalen. NEUROLOGICAL: Normal speech, normal gait. Normal sensory, motor exams PSYCH: Normal mood, normal affect. SKIN: Warm, Dry, normal turgor, no rashes or lesions noted. Course - Re-evaluation Re-evalutation: 07/30/18 23:52 [address] patient in a cockup splint for now since we do not have a regular wrist splint or a carpal tunnel designed splint. I am writing her Rx for a carpal tunnel left wrist splint. She has a primary care doctor she follows up with and if she needs to she will follow-up with him and also get a referral to orthopedist from them if she needs it. I explained to her that the best thing she can do for this is give it rest and this with the splint does wear at all times including sleeping at night. She is ice down at the end of the day when she comes home. I am putting her on a short low-dose steroid taper and told her after the taper is done she can start taking ibuprofen with food 3 times a day until she can see her primary. - Vital Signs Vital signs: Temp Pulse Resp BP Pulse Ox 98.4 F 81 18 149/96 H 98 07/30/18 22:40 07/30/18 22:40 07/30/18 22:40 07/30/18 22:40 07/30/18 22:40 Procedures - Immobilization Left Wrist Time completed: 23:57 Pre-Proc Neuro Vasc Exam: Normal Immobilizer type: Cock-up Performed by: PCT Post-Proc Neuro Vasc Exam: Normal Alignment checked and good: Yes Discharge - Discharge Clinical Impression: Carpal tunnel syndrome of left wrist Condition: Stable Disposition: HOME, SELF-CARE Instructions: Carpal Tunnel Syndrome ([facility]) Additional Instructions: Use the splint at all times including sleeping. You may loosen it up slightly more night to sleep but this will keep your wrist from bending. Take all of the steroid tape until finished. You may start ibuprofen 800 mg 3 times a day with food after he finished the steroid taper. As we discussed if it continues to bother you you will need to see your primary care provider for possible referral to orthopedist for possible injections or surgical intervention. Should you have any concerns or problems return to ER for a recheck. Also do not forget ice down to the end of the day. Prescriptions: Prednisone 5 mg PO ASDIR PRN 6 Days #1 tab.ds.pk PRN Reason: Forms: Elevated Blood Pressure Referrals: TAYLOR CAMPBELL DO [Primary Care Provider] - Follow up as needed
== END 2018-07-31 00:02 | disposition home or self-care (01) ==
LOC: ER 22:26
DX: G56.02 Carpal tunnel syndrome, left upper limb (principal); M25.532 Pain in left wrist; M79.642 Pain in left hand; M79.645 Pain in left finger(s); R20.0 Anesthesia of skin
CPT/HCPCS: 99283; L3908

== ENCOUNTER 2018-09-06 09:53 | Emergency (ER) | payer SELFPAY ==
[2018-09-06 10:09] VITALS: BP 132/73
--- NOTE | 2018-09-06 10:48 | ER Document Report ---
ED Flu Like - General Chief Complaint: Flu Symptoms Stated Complaint: SHORTNESS OF BREATH Time Seen by Provider: 09/06/18 10:41 Notes: Patient says that she has been sick since yesterday with fever, body aches, and dry cough. She says her body feels like someone has run over it. Chest hurts all over. She has a cough but not producing any sputum. Says her temperature yesterday was 102.6. She is also having chills. 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 No history of asthma or COPD. Mirena control. TRAVEL OUTSIDE OF THE [place] IN LAST 30 DAYS: No - Related Data Allergies/Adverse Reactions: No Known Allergies Allergy (Verified 09/06/18 10:00) Past Medical History - Social History Smoking Status: Never Smoker Family History: Reviewed & Not Pertinent - Past Medical History Cardiac Medical History: Denies: Hx Hypertension Pulmonary Medical History: Reports: Hx Bronchitis Denies: Hx Asthma Endocrine Medical History: Denies: Hx Diabetes Mellitus Type 1, Hx Diabetes Mellitus Type 2 Past Surgical History: Reports: Hx Section - x2, Hx Oral Surgery - Immunizations Immunizations up to date: Yes Hx Diphtheria, Pertussis, Tetanus Vaccination: Yes Review of Systems - Review of Systems Notes: CONSTITUTIONAL : See HPI regarding fever. Has general body aches. CARDIOVASCULAR: As general body aching. See HPI. RESPIRATORY: See HPI. GASTROINTESTINAL: Denies abdominal pain or nausea, vomiting, or diarrhea. GENITOURINARY: Denies difficulty or painful urinating, urinary frequency, blood in urine. Denies sore throat. Denies earaches. Can swallow without difficulty. No rashes. No UTI symptoms. No frequency or dysuria. Physical Exam - Vital signs Vitals: Temp Pulse Resp BP Pulse Ox 98.8 F 86 16 132/73 H 99 09/06/18 10:08 09/06/18 10:08 09/06/18 10:08 09/06/18 10:08 09/06/18 10:08 Interpretation: Normal. No: Hypoxic Notes: PHYSICAL EXAMINATION: GENERAL: Well-appearing, no acute distress. Weight 180 kg. HEAD: Atraumatic, normocephalic. Voice normal. Oral exam negative. NECK: Normal range of motion, supple. LUNGS: Breath sounds clear and equal bilaterally. No wheezes, rhonchi, or rales heard. HEART: Regular rate and rhythm without murmurs heard. ABDOMEN: Morbidly obese. Soft, nontender. No guarding or rebound or masses felt. Extremities with negative Homans bilaterally. Course - Re-evaluation Re-evalutation: 09/06/18 12:27 Flu test were negative. - Vital Signs Vital signs: Temp Pulse Resp BP Pulse Ox 98.8 F 86 16 132/73 H 99 09/06/18 10:08 09/06/18 10:08 09/06/18 10:31 09/06/18 10:08 09/06/18 10:08 - Diagnostic Test Radiology results interpreted by me: 09/06/18 12:12 Chest x-ray is normal. Discharge - Discharge Clinical Impression: Viral URI with cough Condition: Stable Disposition: HOME, SELF-CARE Additional Instructions: UPPER RESPIRATORY ILLNESS: You have a viral infection of the respiratory passages -- a "cold." This common infection causes nasal congestion, drainage, and often sore throat and cough. It is highly contagious. The disease usually lasts about 10 to 14 days. There is no "cure" for the viral infection -- it must run its course. If there is a complication, such as bacterial infection in the nose, sinuses, middle ear, or bronchial tubes, antibiotics may be required. The antibiotics won't affect the virus. Drink plenty of fluids. A humidifier may help. An expectorant medication or decongestant may make you more comfortable. Use acetaminophen or ibuprofen for fever or aches. See the doctor if fever persists over two days, if there is any significant worsening of your symptoms, or if you simply fail to improve as expected. COUGH-SUPPRESSANT & EXPECTORANT MEDICATION: You are to use a cough medication as needed for relief of symptoms. This medicine is a combination of an expectorant (to make the mucous thinner and more easily "coughed up") and a cough suppressant (to reduce the frequency of coughing). The cough-suppressant medicine is related to narcotics. You may experience mild nausea and sleepiness. Some patients who are very sensitive to narcotics may have stomach pain from this medicine. Taking the medicine with food reduces these side effects. Do not drive or work with machinery until you know how this medicine affects you. The expectorant should have no side effects. Iodine-containing expectorants (such as organidin) should not be taken by persons with active thyroid disease unless approved by your doctor. Call the doctor if you develop shortness of breath, hives, rash, itching, lightheadedness, or severe nausea and vomiting. USE OF ACETAMINOPHEN (Tylenol): Acetaminophen may be taken for pain relief or fever control. It's much safer than aspirin, offering a wider range of "safe" dosages. It is safe during . Some brand names are Tylenol, Panadol, Datril, Anacin 3, Tempra, and Liquiprin. Acetaminophen can be repeated every four hours. The following are maximum recommended dosages: >89 pounds or adults 650 mg to 900 mg Acetaminophen can be repeated every four hours. Maximum dose not to exceed 4000 mg a day. Ibuprofen Ibuprofen is an excellent, safe drug for pain control. In addition, it has potent antiinflammatory effects which are beneficial, especially in the treatment of injuries, arthritis, or tendonitis. It's best to take ibuprofen with food. Persons with ulcer disease or allergy to aspirin should notify their physician of this before taking ibuprofen. Take the medication exactly as prescribed. Don't take additional doses unless instructed to do so by your doctor. If you develop wheezing, shortness of breath, hives, faintness, stomach pain, vomiting, or dark black stools, return for re-evaluation at once. FOLLOW-UP CARE: If you have been referred to a physician for follow-up care, call the physicians office for an appointment as you were instructed or within the next two days. If you experience worsening or a significant change in your symptoms, notify the physician immediately or return to the Emergency Department at any time for re-evaluation. Prescriptions: Hydrocodone/Acetaminophen [[place] 5-325 mg Tablet] 1 tab PO Q6HP PRN #10 tablet PRN Reason: Forms: Return to Work Referrals: JAYE FERNANDEZ PA [Primary Care Provider] - Follow up as needed
--- NOTE | 2018-09-06 11:06 | RADIOLOGY REPORT (SQ) ---
EXAM DESCRIPTION: CHEST 2 VIEWS COMPLETED DATE/TIME: 09/06/2018 10:53 am REASON FOR STUDY: Dry cough for 1 day, fever COMPARISON: 05/27/2017 EXAM PARAMETERS: NUMBER OF VIEWS: two views TECHNIQUE: Digital Frontal and Lateral radiographic views of the chest acquired. RADIATION DOSE: NA LIMITATIONS: none FINDINGS: LUNGS AND PLEURA: No opacities, masses or pneumothorax. No pleural effusion. MEDIASTINUM AND HILAR STRUCTURES: No masses or contour abnormalities. HEART AND VASCULAR STRUCTURES: Heart normal size. No evidence for failure. BONES: No acute findings. HARDWARE: None in the chest. OTHER: No other significant finding. IMPRESSION: NO ACUTE RADIOGRAPHIC FINDING IN THE CHEST. TECHNICAL DOCUMENTATION: JOB ID: [id number] [facility]- All Rights Reserved Reading location - IP/workstation name: [email or web address]
[2018-09-06 11:32] LABS: A TYPE INFLUENZA AG NEGATIVE (NEGATIVE); B INFLUENZA AG NEGATIVE (NEGATIVE)
== END 2018-09-06 12:28 | disposition home or self-care (01) ==
LOC: ER 09:53
DX: J06.9 Acute upper respiratory infection, unspecified (principal); B97.89 Other viral agents as the cause of diseases classified elsewhere; R50.9 Fever, unspecified; R05 Cough; R07.9 Chest pain, unspecified; Z97.5 Presence of (intrauterine) contraceptive device
CPT/HCPCS: 71046; 87804; 99283

== ENCOUNTER → 2020-07-27 | Outpatient (CLI) | payer OTHER ==
[2020-07-27 13:56] VITALS: BP 131/81
--- NOTE | 2020-07-27 13:56 | ER RDC ASSESSMENT REPORT ---
Intake - In the Last 14 days Have you traveled outside [place]?: No Have you been in close contact with someone CONFIRMED: Yes Worked in Healthcare?: No - Symptoms Subjective Fever([place] feverish): No Chills: No Muscule Aches: No Runny Nose: No Sore Throat: No Cough (New or worsening chronic cough): No Shortness of breath: No Nausea or Vomiting: No Headache: No Abdominal Pain: No Diarrhea(3 or more loose stools in last 24 hours): No - Do you have any of the following Chronic lung disease: Asthma or emphysema or COPD: No Cystic Fibrosis: No Diabetes: No High Blood Pressure: No Cardiovascular Disease: No Chronic Kidney Disease: No Chronic Liver Disease: No Chronic blood disorder like Sickle Cell Disease: No Weak immune system due to disease or medication: No Neurologic condition that limits movement: No Developmental delay - Moderate to Severe: No Recent (within past 2 weeks) or current : No Morbid Obesity (>100 pounds over ideal weight): Yes - Objective Temperature: 98.5 F Pulse Rate: 63 Respiratory Rate: 16 Blood Pressure: 131/81 O2 Sat by Pulse Oximetry: 97 Objective: Given above, testing performed: covid Disposition: Home; Selfcare General - General Stated Complaint: Asymptomatic, Covid testing Mode of Arrival: Ambulatory Information source: Patient - HPI Notes: Patient presents to clinic for COVID-19 testing after coming in close contact with another COVID 19 positive individual. Patient is asymptomatic. They deny any cough, shortness of breath, fever, chills, muscle aches, rhinorrhea, sore throat, nausea or vomiting, headache, abdominal pain or diarrhea. Patient has no acute medical concerns. - Related Data Allergies/Adverse Reactions: No Known Allergies Allergy (Verified 09/06/18 10:00) Past Medical History - General Information source: Patient - Social History Smoking Status: Former Smoker Family History: Reviewed & Not Pertinent - Past Medical History Cardiac Medical History: Reports: None Denies: Hx Coronary Artery Disease, Hx Heart Attack, Hx Hypertension Pulmonary Medical History: Reports: Hx Bronchitis Denies: Hx Asthma, Hx COPD, Hx Pneumonia EENT Medical History: Reports: None Neurological Medical History: Reports: None. Denies: Hx Cerebrovascular Accident, Hx Migraine, Hx Seizures Endocrine Medical History: Reports: None. Denies: Hx Diabetes Mellitus Type 1, Hx Diabetes Mellitus Type 2 Renal/ Medical History: Reports: None. Denies: Hx Peritoneal Dialysis Malignancy Medical History: Reports: None GI Medical History: Reports: None Musculoskeletal Medical History: Reports None, Denies Hx Arthritis Skin Medical History: Reports None Psychiatric Medical History: Reports: None Traumatic Medical History: Reports: None Infectious Medical History: Reports: None Past Surgical History: Reports: Hx Section - x2, Hx Oral Surgery Physical Exam - General General appearance: Appears well, Alert In distress: None Notes: PHYSICAL EXAMINATION: GENERAL: Well-appearing, morbidly obese, no acute distress. HEAD: Atraumatic, normocephalic. EYES: sclera anicteric, conjunctiva are normal. ENT: nares patent. Moist mucous membranes. NECK: Normal range of motion, supple without lymphadenopathy. LUNGS: No increased work of breathing. Lung sounds CTAB and equal. No wheezes rales or rhonchi. HEART: Regular rate and rhythm without murmurs. ABDOMEN: Soft, nontender, normal bowel sounds, no guarding. EXTREMITIES: Normal range of motion, no pitting edema. No cyanosis. NEUROLOGICAL: A&O x 3. Normal speech. PSYCH: Normal mood, normal affect. SKIN: Warm, Dry, normal turgor, no rashes or lesions noted Patient Education/Counseling Counseling/Education: Patient presents for COVID 19 testing after close exposure to another person who has tested positive for COVID 19. Patient is asymptomatic at this time. Patient does not have emergency worrying symptoms such as difficulty breathing, shortness of breath, chest pain, pressure, confusion or cyanosis. Patient appears suitable for discharge as vital signs are stable and patient is nontoxic in appearance. Good return precautions have been discussed with patient, patient verbalized understanding and is agreeable with discharge plan of care at this time. Guidance for worsening S/SX: As a person under investigation for Covid 19, the [place] department of Health and Human Services, division of public health advises you to adhere to the following guidance until your test results are reported to you. If your test result is positive, you will receive additional information from your provider and your local health department at that time. Remain at home until you are cleared by the health provider or public health authorities. Keep a log of visitors to your home, notify any visitors to your home of your isolation status. If you plan to move to a new address or leave the county, notify the local health department in your County. Call your doctor or seek care if you have an urgent medical need. Before seeking medical care, call ahead to get instructions from the provider before arriving at the medical office clinic or hospital. Notify them that you are being tested for the virus that causes Covid 19 so that arrangements can be made, as necessary, to prevent transmission to others in the healthcare setting. Next, notify the local health department in your county. If a medical emergency arises and you need to call 911, inform the first responders that you are being tested for the virus that causes Covid 19. Next, notify the local health department in your county. RDC Discharge - Discharge Clinical Impression: Encounter for screening laboratory testing for COVID-19 virus in asymptomatic patient Condition: Good Disposition: Home; Selfcare
== END ==
LOC: RDC 10:21
PROVIDERS: ATTEND Registered Nurse
DX: Z20.828 Contact with and (suspected) exposure to other viral communicable diseases (principal); E66.01 Morbid (severe) obesity due to excess calories; Z87.891 Personal history of nicotine dependence
CPT/HCPCS: 99201; 99211; U0003; C9803; 87635